=== PATIENT | male | born 1980 | race Caucasian/White ===

== ENCOUNTER 2020-03-03 12:25 | Emergency (ER) | payer BC ==
--- NOTE | 2020-03-03 13:07 | RAD REPORT ---
EXAM DESCRIPTION: Nomi Single View03/03/2020 12:54 pm CLINICAL HISTORY: Palpitations COMPARISON: 2014 FINDINGS: The lungs appear clear of acute infiltrate. The heart is normal size IMPRESSION: No acute abnormalities displayed
[2020-03-03 13:08] LABS: Absolute Lymphocytes (CBC) 3.1 K/uL (0.7-4.9); Basophils % 1.1 % (0-1.3); Hematocrit 46.6 % (39.6-49.0); Lymphocytes % 45.2 % (15.3-44.8); MPV 8.7 fL (7.6-11.3); RBC Red Blood Cell Count 5.41 M/uL (4.33-5.43)
[2020-03-03 13:09] LABS: Protime INR 0.97
--- NOTE | 2020-03-03 13:11 | RAD REPORT ---
EXAM DESCRIPTION: CT - Head Brain Wo Cont - 03/03/2020 12:56 pm CLINICAL HISTORY: Visual disturbance COMPARISON: None. TECHNIQUE: Computed axial tomography of the head was obtained. IV contrast was not requested. All CT scans are performed using dose optimization technique as appropriate and may include automated exposure control or mA/KV adjustment according to patient size. FINDINGS: An intracranial bleed is not seen . The ventricles are normal in caliber. No extra-axial fluid collection is noted. Fluid within the sinuses/ mastoids is not seen. IMPRESSION: No acute intracranial abnormality is seen. If patient's symptoms persist MRI of the bra in would be recommended.
[2020-03-03 13:25] LABS: ALT/SGPT 123 U/L (12-78); AST/SGOT 45 U/L (15-37); Alkaline Phosphatase 56 U/L (45-117); BUN Blood Urea Nitrogen 17 mg/dL (7-18); Bicarbonate 28 mmol/L (21-32); Bilirubin Direct 0.2 mg/dL (0-0.2); Bilirubin Total 0.7 mg/dL (0.2-1.0); Glucose Level 122 mg/dL (74-106); Magnesium 2.3 mg/dL (1.8-2.4); NT PRO-BNP 16 pg/mL (<125); Potassium 3.5 mmol/L (3.5-5.1); Protein, Total 7.6 g/dL (6.4-8.2); Sodium Level 140 mmol/L (136-145); Troponin (Emerg Dept Use Only) < 0.02 ng/mL (0.0-0.045)
[2020-03-03 13:33] LABS: Blood Morphology Comment NOT SEEN (NOT SEEN); Platelet Estimate ADEQ
--- NOTE | 2020-03-03 13:35 | ER ---
Nurse's Notes [facility] Name: Yoshi Connors Age: 39 yrs Sex: Male : 1980 Arrival Date: 03/03/2020 Time: 12:30 Bed 30 Private MD: Rufus Marie S Diagnosis: Palpitations Presentation: 03/03 12:38 Chief complaint: Patient states: Heart palpitations with dizziness and flutters in his ll1 left eye intermittently today. No pain. Coronavirus screen: Proceed with normal triage. Patient denies a cough. Patient denies shortness of breath or difficulty breathing. Patient denies measured and/or subjective temperature greater than 100.4F prior to today's visit. Patient denies travel on a cruise ship or to a country the [facility] currently lists as an affected area. Patient denies contact with known and/or suspected case of COVID-19. Ebola Screen: Patient denies travel to an Ebola-affected area in the 21 days before illness onset. Initial Sepsis Screen: Does the patient meet any 2 criteria? No. Patient's initial sepsis screen is negative. Risk Assessment: Do you want to hurt yourself or someone else? Patient reports no desire to harm self or others. Onset of symptoms was March 03, 2020. 12:38 Method Of Arrival: Ambulatory ll1 12:38 Acuity: TRUDY 3 ll1 12:45 Initial Sepsis Screen: Does the patient have a suspected source of infection? No. bp Patient's initial sepsis screen is negative. Triage Assessment: 12:45 General: Appears in no apparent distress. comfortable, Behavior is cooperative, bp appropriate for age, anxious. Pain: Denies pain. EENT: No deficits noted. Neuro: No deficits noted. Cardiovascular: No deficits noted. Respiratory: No deficits noted. GI: No signs and/or symptoms were reported involving the gastrointestinal system. : No signs and/or symptoms were reported regarding the genitourinary system. Derm: No deficits noted. Musculoskeletal: No deficits noted. Historical: - Allergies: 12:41 No Known Allergies; ll1 - PMHx: 12:41 None; ll1 - PSHx: 12:41 None; ll1 - Immunization history:: Adult Immunizations up to date. - Social history:: Patient uses alcohol, only on a social basis. Patient/guardian denies using street drugs, tobacco products, Smoking status: Patient denies any tobacco usage or history of. Screenin:44 Abuse screen: Denies threats or abuse. Denies injuries from another. Nutritional bp screening: No deficits noted. Tuberculosis screening: No symptoms or risk factors identified. Fall Risk None identified. Assessment: 12:44 General: SEE TRIAGE NOTE. PT ASYMPTOMATIC AT THIS TIME. bp 13:53 Reassessment: PT D/C HOME AMBULATORY, DX WITH PALPITATIONS. bp Vital Signs: 12:38 BP 138 / 84; Pulse 80; Resp 17; Temp 98.2; Pulse Ox 99% ; Pain 0/10; ll1 13:52 BP 133 / 81; Pulse 80; Resp 16; Temp 98.3; Pulse Ox 99% ; bp ED Course: 12:30 Patient arrived in ED. mr 12:30 Rufus Marie MD is Private Physician. mr 12:31 Cintia Logan FNP-C is [facility]. kb 12:31 Cielo Hinton MD is Attending Physician. kb 12:40 Triage completed. ll1 12:41 Arm band placed on Patient placed in an exam room, on a stretcher. ll1 12:44 Mika Jon, RN is Primary Nurse. bp 12:44 Patient has correct armband on for positive identification. Bed in low position. Call bp light in reach. Side rails up X2. 12:46 XRAY Chest (1 view) Sent. bp 12:50 Inserted saline lock: 20 gauge in right antecubital area, using aseptic technique. bp 12:54 XRAY Chest (1 view) In Process Unspecified. EDMS 12:56 CT Head Brain wo Cont In Process Unspecified. EDMS 13:53 No provider procedures requiring assistance completed. IV discontinued, intact, bp bleeding controlled, No redness/swelling at site. Pressure dressing applied. Administered Medications: No medications were administered Outcome: 13:34 Discharge ordered by . kb 13:53 Discharged to home ambulatory. bp 13:53 Condition: stable 13:53 Discharge instructions given to patient, Instructed on discharge instructions, follow up and referral plans. Demonstrated understanding of instructions, follow-up care. 13:54 Patient left the ED. bp Signatures: Dispatcher [employer] EDMS Cintia Logan FNP-C FNP-Lucia Barajas Mika Avila, RN RN bp Humera Shannon, RN RN ll1
--- NOTE | 2020-03-03 13:36 | EDPHYS ---
Physician Documentation [facility] Name: Yoshi Connors Age: 39 yrs Sex: Male : 1980 Arrival Date: 03/03/2020 Time: 12:30 Bed 30 Private MD: Rufus Marie S ED Physician Cielo Hinton HPI: 03/03 13:32 This 39 yrs old Male presents to ER via Ambulatory with complaints of Eye kb Problem. 13:32 The patient presents with a history of "flutters". Context: The symptoms occur at rest. kb Onset: The symptoms/episode began/occurred this morning. Duration: The patient or guardian reports multiple episodes, that are intermittent, with no pattern. Modifying factors: The symptoms are aggravated by nothing. The symptoms are alleviated by nothing. Associated signs and symptoms: Pertinent positives: floaters seen from left eye. Severity of symptoms: At their worst the symptoms were mild moderate in the emergency department the symptoms have resolved and did so just prior to arrival. The patient has not experienced similar symptoms in the past. The patient has not recently seen a physician. Pt reports palpitations with associated floaters out of left eye that has been intermittent since this morning. States symptoms have resolved now. . Historical: - Allergies: 12:41 No Known Allergies; ll1 - PMHx: 12:41 None; ll1 - PSHx: 12:41 None; ll1 - Immunization history:: Adult Immunizations up to date. - Social history:: Patient uses alcohol, only on a social basis. Patient/guardian denies using street drugs, tobacco products, Smoking status: Patient denies any tobacco usage or history of. ROS: 13:30 Constitutional: Negative for fever, chills, and weight loss, ENT: Negative for injury, kb pain, and discharge, Neck: Negative for injury, pain, and swelling, Respiratory: Negative for shortness of breath, cough, wheezing, and pleuritic chest pain, Abdomen/GI: Negative for abdominal pain, nausea, vomiting, diarrhea, and constipation, Back: Negative for injury and pain, MS/Extremity: Negative for injury and deformity, Skin: Negative for injury, rash, and discoloration, Neuro: Negative for headache, weakness, numbness, tingling, and seizure. 13:30 Eyes: Positive for sees floaters out of left eye intermittently . 13:30 Cardiovascular: Positive for palpitations, Negative for chest pain, edema, orthopnea, paroxysmal nocturnal dyspnea. Exam: 13:31 Constitutional: This is a well developed, well nourished patient who is awake, alert, kb and in no acute distress. Head/Face: Normocephalic, atraumatic. Eyes: Pupils equal round and reactive to light, extra-ocular motions intact. Lids and lashes normal. Conjunctiva and sclera are non-icteric and not injected. Cornea within normal limits. Periorbital areas with no swelling, redness, or edema. ENT: Nares patent. No nasal discharge, no septal abnormalities noted. Tympanic membranes are normal and external auditory canals are clear. Oropharynx with no redness, swelling, or masses, exudates, or evidence of obstruction, uvula midline. Mucous membranes moist. Neck: Trachea midline, no thyromegaly or masses palpated, and no cervical lymphadenopathy. Supple, full range of motion without nuchal rigidity, or vertebral point tenderness. No Meningismus. Chest/axilla: Normal chest wall appearance and motion. Nontender with no deformity. No lesions are appreciated. Cardiovascular: Regular rate and rhythm with a normal S1 and S2. No gallops, murmurs, or rubs. Normal PMI, no JVD. No pulse deficits. Respiratory: Lungs have equal breath sounds bilaterally, clear to auscultation and percussion. No rales, rhonchi or wheezes noted. No increased work of breathing, no retractions or nasal flaring. Abdomen/GI: Soft, non-tender, with normal bowel sounds. No distension or tympany. No guarding or rebound. No evidence of tenderness throughout. Skin: Warm, dry with normal turgor. Normal color with no rashes, no lesions, and no evidence of cellulitis. MS/ Extremity: Pulses equal, no cyanosis. Neurovascular intact. Full, normal range of motion. Neuro: Awake and alert, GCS 15, oriented to person, place, time, and situation. Cranial nerves II-XII grossly intact. Motor strength 5/5 in all extremities. Sensory grossly intact. Cerebellar exam normal. Normal gait. 13:37 ECG was reviewed by the Attending Physician. kb Vital Signs: 12:38 BP 138 / 84; Pulse 80; Resp 17; Temp 98.2; Pulse Ox 99% ; Pain 0/10; ll1 13:52 BP 133 / 81; Pulse 80; Resp 16; Temp 98.3; Pulse Ox 99% ; bp MDM: 12:35 Patient medically screened. kb 13:29 Data reviewed: vital signs, nurses notes. Data interpreted: Pulse oximetry: on room air kb is 99 %. Interpretation: normal. Counseling: I had a detailed discussion with the patient and/or guardian regarding: the historical points, exam findings, and any diagnostic results supporting the discharge/admit diagnosis, lab results, radiology results, the need for outpatient follow up, a family practitioner, to return to the emergency department if symptoms worsen or persist or if there are any questions or concerns that arise at home. 03/03 12:40 Order name: Basic Metabolic Panel; Complete Time: 13:27 kb 03/03 12:40 Order name: CBC with Diff; Complete Time: 13:35 kb 03/03 12:40 Order name: LFT's; Complete Time: 13:27 kb 03/03 12:40 Order name: Magnesium; Complete Time: 13:27 kb 03/03 12:40 Order name: NT PRO-BNP; Complete Time: 13:27 kb 03/03 12:40 Order name: PT-INR; Complete Time: 13:16 kb 03/03 12:40 Order name: Troponin (emerg Dept Use Only); Complete Time: 13:27 kb 03/03 12:40 Order name: XRAY Chest (1 view); Complete Time: 13:16 kb 03/03 12:40 Order name: EKG; Complete Time: 12:41 kb 03/03 12:40 Order name: Cardiac monitoring; Complete Time: 12:46 kb 03/03 12:40 Order name: EKG - Nurse/Tech; Complete Time: 13:09 kb 03/03 12:40 Order name: IV Saline Lock; Complete Time: 12:56 kb 03/03 12:40 Order name: CT Head Brain wo Cont; Complete Time: 13:16 kb 03/03 13:34 Order name: Manual Differential; Complete Time: 13:35 EDMS 03/03 12:40 Order name: Labs collected and sent; Complete Time: 12:56 kb 03/03 12:40 Order name: O2 Per Protocol; Complete Time: 12:56 kb 03/03 12:40 Order name: O2 Sat Monitoring; Complete Time: 12:56 kb EC:37 Rate is 80 beats/min. Rhythm is regular. QRS Winder is Normal. [place] interval is normal at kb 166 msec. QRS interval is normal at 100 msec. QT interval is normal at 360 msec. Administered Medications: No medications were administered Disposition: 17:24 Co-signature as Attending Physician, Cielo Hinton MD. ma2 Disposition: 03/03/20 13:34 Discharged to Home. Impression: Palpitations. - Condition is Stable. - Discharge Instructions: Palpitations, [id number]. - Medication Reconciliation Form, Thank You Letter, Antibiotic Education, Prescription Opioid Use form. - Follow up: Emergency Department; When: As needed; Reason: Worsening of condition. Follow up: Private Physician; When: 2 - 3 days; Reason: Recheck today's complaints, Continuance of care, Re-evaluation by your physician. Signatures: Dispatcher [employer] EDCintia Cerrato, MARAL SARAVIA-Mika Portillo, RN RN Cielo Hinton MD MD ma2 Humera Shannon RN RN ll1 Corrections: (The following items were deleted from the chart) 13:54 13:34 03/03/2020 13:34 Discharged to Home. Impression: Palpitations. Condition is bp Stable. Forms are Medication Reconciliation Form, Thank You Letter, Antibiotic Education, Prescription Opioid Use. Follow up: Emergency Department; When: As needed; Reason: Worsening of condition. Follow up: Private Physician; When: 2 - 3 days; Reason: Recheck today's complaints, Continuance of care, Re-evaluation by your physician. kb
[2020-03-03 14:03] VITALS: O2SAT 99
[2020-03-03 14:04] VITALS: BP 133/81; TEMP 98.3
--- NOTE | 2020-03-04 16:18 | EKG ---
Test Date: 2020-03-03 Test Time: 13:24:26 [employer] Check[employer] Technician: [employer] MEASUREMENT RESULTS: Intervals: Rate: 80 GA: 166 QRSD: 100 QT: 360 QTc: 415 [place]: P: 60 GA: 166 QRS: 27 T: 63 INTERPRETIVE STATEMENTS: Normal sinus rhythm Normal ECG Compared to ECG 09/24/2008 13:09:26 Sinus tachycardia no longer present Electronically Signed On 03-04-20 16:16:24 CDT by Rasta Lange
== END 2020-03-03 13:54 | disposition home or self-care (01) ==
LOC: ER 12:25
DX: R00.2 Palpitations (principal)
CPT/HCPCS: 36415; 70450; 71045; 80048; 80076; 83735; 83880; 84484; 85025; 85610; 93005; 99283

== ENCOUNTER 2021-02-12 17:16 | Observation (INO) | payer BC ==
[2021-02-12 21:08] LABS: Absolute Lymphocytes (CBC) 3.6 K/uL (0.7-4.9); Basophils % 0.6 % (0-1.3); Lymphocytes % 41.1 % (15.3-44.8); RBC Red Blood Cell Count 5.26 M/uL (4.33-5.43)
[2021-02-12 21:09] LABS: Protime INR 0.9
[2021-02-12 21:17] LABS: ALT/SGPT 109 U/L (12-78); AST/SGOT 41 U/L (15-37); Albumin 4.2 g/dL (3.4-5.0); Alkaline Phosphatase 56 U/L (45-117); BUN Blood Urea Nitrogen 15 mg/dL (7-18); Bicarbonate 29 mmol/L (21-32); Bilirubin Direct 0.1 mg/dL (0-0.2); Bilirubin Total 0.5 mg/dL (0.2-1.0); Glucose Level 93 mg/dL (74-106); Lipase 156 U/L (73-393); Magnesium 2.4 mg/dL (1.8-2.4); NT PRO-BNP 8 pg/mL (<125); Potassium 4.1 mmol/L (3.5-5.1); Sodium Level 142 mmol/L (136-145); Troponin (Emerg Dept Use Only) < 0.02 ng/mL (0.0-0.045)
[2021-02-12] MEDS ORDERED: ASPIRIN 81 MG CHEWABLE TABLET ONE (21:42)
[2021-02-12] MEDS ORDERED: ENOXAPARIN 80 MG/0.8 ML SQ ONE (21:42)
[2021-02-12] MEDS ORDERED: ENOXAPARIN 40 MG/0.4 ML SQ ONE (21:43)
[2021-02-12] MEDS ORDERED: FAMOTIDINE 20 MG/2 ML VIAL IV ONE (21:43)
--- NOTE | 2021-02-12 21:55 | EDPHYS ---
Physician Documentation [facility] Name: Yoshi Connors Age: 40 yrs Sex: Male : 1980 Arrival Date: 02/12/2021 Time: 17:17 Bed 5 Private MD: ED Physician Jose Vargas HPI: 02/12 20:58 This 40 yrs old Male presents to ER via Ambulatory with complaints of Chest gm Pain. 20:58 The patient or guardian reports chest pain that is located primarily in the anterior gm chest wall, bilaterally. Onset: today. The pain does not radiate. Associated signs and symptoms: Pertinent positives: diaphoresis, lightheadedness, nausea, shortness of breath. The chest pain is described as burning, a heaviness, causing indigestion. Duration: The patient or guardian reports multiple episodes, with no pattern. Modifying factors: The symptoms are alleviated by nothing. the symptoms are aggravated by nothing. Severity of pain: At its worst the pain was moderate in the emergency department the pain has resolved. The patient has experienced similar episodes in the past, a few times. Historical: - Allergies: 17:26 No Known Allergies; ca1 - Home Meds: 17:26 None [Active]; ca1 - PMHx: 17:26 None; ca1 - PSHx: 17:26 None; ca1 - Immunization history:: Flu vaccine is not up to date. - Social history:: Smoking status: Patient denies any tobacco usage or history of. - Family history:: not pertinent. ROS: 20:58 Constitutional: Negative for fever, chills, and weight loss, Eyes: Negative for injury, gm pain, redness, and discharge, ENT: Negative for injury, pain, and discharge, Neck: Negative for injury, pain, and swelling, Cardiovascular: Negative for chest pain, palpitations, and edema, Respiratory: Negative for shortness of breath, cough, wheezing, and pleuritic chest pain, Abdomen/GI: Negative for abdominal pain, nausea, vomiting, diarrhea, and constipation, Back: Negative for injury and pain, : Negative for injury, bleeding, discharge, and swelling, MS/Extremity: Negative for injury and deformity, Skin: Negative for injury, rash, and discoloration, Neuro: Negative for headache, weakness, numbness, tingling, and seizure, Psych: Negative for depression, anxiety, suicide ideation, homicidal ideation, and hallucinations, Allergy/Immunology: Negative for hives, rash, and allergies, Endocrine: Negative for neck swelling, polydipsia, polyuria, polyphagia, and marked weight changes. Exam: 20:58 Constitutional: This is a well developed, well nourished patient who is awake, alert, gm and in no acute distress. Head/Face: Normocephalic, atraumatic. Eyes: Pupils equal round and reactive to light, extra-ocular motions intact. Lids and lashes normal. Conjunctiva and sclera are non-icteric and not injected. Cornea within normal limits. Periorbital areas with no swelling, redness, or edema. ENT: Nares patent. No nasal discharge, no septal abnormalities noted. Tympanic membranes are normal and external auditory canals are clear. Oropharynx with no redness, swelling, or masses, exudates, or evidence of obstruction, uvula midline. Mucous membranes moist. Neck: Trachea midline, no thyromegaly or masses palpated, and no cervical lymphadenopathy. Supple, full range of motion without nuchal rigidity, or vertebral point tenderness. No Meningismus. Chest/axilla: Normal chest wall appearance and motion. Nontender with no deformity. No lesions are appreciated. Cardiovascular: Regular rate and rhythm with a normal S1 and S2. No gallops, murmurs, or rubs. Normal PMI, no JVD. No pulse deficits. Respiratory: Lungs have equal breath sounds bilaterally, clear to auscultation and percussion. No rales, rhonchi or wheezes noted. No increased work of breathing, no retractions or nasal flaring. Abdomen/GI: Soft, non-tender, with normal bowel sounds. No distension or tympany. No guarding or rebound. No evidence of tenderness throughout. Back: No spinal tenderness. No costovertebral tenderness. Full range of motion. Male : Normal genitalia with no discharge or lesions. Skin: Warm, dry with normal turgor. Normal color with no rashes, no lesions, and no evidence of cellulitis. MS/ Extremity: Pulses equal, no cyanosis. Neurovascular intact. Full, normal range of motion. Neuro: Awake and alert, GCS 15, oriented to person, place, time, and situation. Cranial nerves II-XII grossly intact. Motor strength 5/5 in all extremities. Sensory grossly intact. Cerebellar exam normal. Normal gait. Psych: Awake, alert, with orientation to person, place and time. Behavior, mood, and affect are within normal limits. 20:58 Musculoskeletal/extremity: DVT Exam: No signs of deep vein thrombosis. no pain, no swelling, no tenderness, negative Homans' sign noted on exam, no appreciated bluish discoloration, no erythema, no increased warmth. 21:03 ECG was reviewed by the Attending Physician. gm Vital Signs: 17:23 BP 160 / 95; Pulse 95; Resp 18 S; Temp 98.4(TE); Pulse Ox 99% on R/A; Weight 115.67 kg ca1 (R); Height 6 ft. 8 in. (203.20 cm) (R); Pain 2/10; 20:36 BP 142 / 94; Pulse 68; Resp 16; Pulse Ox 98% on R/A; rv 02/13 19:14 BP 113 / 82; Pulse 78; Resp 18; Temp 98; Pulse Ox 99% ; ea 02/12 17:23 Body Mass Index 28.01 (115.67 kg, 203.20 cm) ca1 MDM: 02/12 20:33 Patient medically screened. gm 21:04 Differential diagnosis: abnormal EKG, acute myocardial infarction, acute pericarditis, gm anxiety, coronary artery disease chest wall pain, cholecystitis, Cholelithiasis costochondritis, pancreatitis, pulmonary embolus, unstable angina. HEART Score: History: Slightly Suspicious (0), ECG: Non specific repolarization disturbance / LBTB / PM (1), Age: < or = 45 years (0), Risk Factors: 1 or 2 risk factors (1), [+ Family HX] Troponin: < or = 1 x Normal Limit (0). The patient was given aspirin in the Emergency Department. The patient's deep vein thrombosis risk score was calculated as follows: Total Score: 0. This patient was found to be at low risk for a deep vein thrombosis by using the Well's assessment criteria. The patient's pulmonary embolism risk score was calculated as follows: Total Score: 0-2 points. This patient was found to be at low risk for a pulmonary embolism by using the Well's assessment criteria. JAZMIN Risk Score: TOTAL SCORE = 0. Data reviewed: vital signs, nurses notes, lab test result(s), EKG, radiologic studies, plain films. Data interpreted: system admin: rate is 68 beats/min, rhythm is regular, Pulse oximetry: on room air is 98 %. Test interpretation: by ED physician or midlevel provider: ECG, plain radiologic studies. Counseling: I had a detailed discussion with the patient and/or guardian regarding: the historical points, exam findings, and any diagnostic results supporting the discharge/admit diagnosis, lab results, radiology results, the need for further work-up and treatment in the hospital. 02/12 20:33 Order name: Basic Metabolic Panel [facility] 02/12 20:33 Order name: CBC with Diff [facility] 02/12 20:33 Order name: LFT's; Complete Time: 21:48 [facility] 02/12 20:33 Order name: Magnesium; Complete Time: 21:48 [facility] 02/12 20:33 Order name: NT PRO-BNP; Complete Time: 21:48 [facility] 02/12 20:33 Order name: PT-INR; Complete Time: 21:48 [facility] 02/12 20:33 Order name: Troponin (emerg Dept Use Only); Complete Time: 21:48 [facility] 02/12 20:34 Order name: Basic Metabolic Panel; Complete Time: 21:48 [facility] 02/12 20:34 Order name: CBC with Automated Diff; Complete Time: 21:48 [facility] 02/12 21:02 Order name: Lipase; Complete Time: 21:48 [facility] 02/12 22:58 Order name: SARS-COV-2 RT PCR [facility] 02/13 03:21 Order name: Troponin I [facility] 02/12 17:26 Order name: EKG; Complete Time: 17:27 [facility] 02/12 17:26 Order name: EKG - Nurse/Tech; Complete Time: 17:26 [facility] 02/12 20:33 Order name: XRAY Chest (1 view) [facility] 02/12 20:33 Order name: Cardiac monitoring; Complete Time: 20:37 [facility] 02/12 20:33 Order name: IV Saline Lock; Complete Time: 20:37 [facility] 02/12 20:56 Order name: EKG; Complete Time: 20:57 [facility] 02/12 21:04 Order name: EKG; Complete Time: 21:04 rv 02/12 21:07 Order name: CT Aorta for Dissection [facility] 02/13 03:21 Order name: Lipid Profile [facility] 03/25 14:22 Order name: NM [facility] 02/12 20:33 Order name: Labs collected and sent; Complete Time: 20:37 [facility] 02/12 20:33 Order name: O2 Per Protocol; Complete Time: 20:37 [facility] 02/12 20:33 Order name: O2 Sat Monitoring; Complete Time: 20:37 [facility] 02/12 20:56 Order name: EKG - Nurse/Tech; Complete Time: 22:05 gm EC:03 Rate is 64 beats/min. Rhythm is regular. QRS [place] is Normal. NC interval is normal. QRS gm interval is normal. QT interval is normal. No Q waves. T waves are Normal. No ST changes noted. Clinical impression: NSR w/ Non-specific ST/T Changes and No evidence of ischemia. Interpreted by me. Reviewed by me. Administered Medications: 21:01 CANCELLED (Duplicate Order): Lopressor 5 mg IVP once; Hold for SBP <100 or HR <60. gm 21:02 CANCELLED (Duplicate Order): Lopressor (metoprolol TARTRATE) 50 mg PO once [facility] 21:40 Drug: Lovenox 1 mg/kg Route: Sub-Q; Site: abdomen; rv 02/13 02:14 Follow up: Response: No adverse reaction rv 02/12 21:41 Drug: Aspirin Chewable Tablet 324 mg Route: PO; rv 02/13 02:15 Follow up: Response: No adverse reaction rv 02/12 21:41 Drug: Pepcid 20 mg Route: IVP; Site: left antecubital; rv 02/13 02:15 Follow up: Response: No adverse reaction rv 02/12 22:37 Drug: Lopressor 25 mg Route: PO; jb4 02/13 02:14 Follow up: Response: No adverse reaction rv Disposition: 02/12/21 21:55 Hospitalization ordered by Cielo Gomez for Observation. Preliminary diagnosis is Chest pain, unspecified. - Bed requested for Telemetry/MedSurg (observation). - Status is Observation. ea - Condition is Stable. - Problem is new. - Symptoms have improved. Signatures: Dispatcher [employer] EDNV Shelby Cm RN RN dw Anderson, Corey, MD MD cha Bryson, James, RN RN jb4 Jyoti Stroud RN RN ea Vicente, Ronaldo, RN RN rv Acob, Cheryl RN RN ca1 Corazon Orozco RN RN rd1 Corrections: (The following items were deleted from the chart) 02/12 21:01 20:56 Lopressor 5 mg IVP once; Hold for SBP <100 or HR <60. ordered. [facility] : 20:56 Lopressor (metoprolol TARTRATE) 50 mg PO once ordered. [facility] 20:57 LIPASE+C.LAB.BRZ ordered. EDMS EDMS 22:06 21:42 CORONAVIRUS+MR.LAB.BRZ ordered. EDNV EDMS 02/13 02:10 02/12 21:55 Hospitalization Ordered by Cielo Gomez MD for Observation. Preliminary rd1 diagnosis is Chest pain, unspecified. Bed requested for Telemetry/MedSurg (observation). Status is Observation. Condition is Stable. Problem is new. Symptoms have improved. [facility] 02/13 18:49 02:10 02/12/2021 21:55 Hospitalization Ordered by Cielo Gomez MD for Observation. dw Preliminary diagnosis is Chest pain, unspecified. Bed requested for [facility] ER HOLD. Status is Observation. Condition is Stable. Problem is new. Symptoms have improved. rd1 20:27 18:49 02/12/2021 21:55 Hospitalization Ordered by Cielo Gomez MD for Observation. ea Preliminary diagnosis is Chest pain, unspecified. Bed requested for Telemetry/MedSurg (observation). Status is Observation. Condition is Stable. Problem is new. Symptoms have improved. dw
--- NOTE | 2021-02-12 21:55 | ER ---
Nurse's Notes [facility] Name: Yoshi Connors Age: 40 yrs Sex: Male : 1980 Arrival Date: 02/12/2021 Time: 17:17 Bed 5 Private MD: Diagnosis: Chest pain, unspecified Presentation: 02/12 17:23 Chief complaint: Patient states: Chest pain started 2 hrs [employer], got clammy, SOB and ca1 nauseated after. Also reports diarrhea after the pain. Coronavirus screen: Client denies travel out of the [place] in the last 14 days. diarrhea, nausea, Client presents with at least one sign or symptom that may indicate coronavirus-19. Standard/surgical mask placed on the client. Provider contacted for isolation considerations. Ebola Screen: Patient negative for fever greater than or equal to 101.5 degrees Fahrenheit, and additional compatible Ebola Virus Disease symptoms Patient denies exposure to infectious person. Patient denies travel to an Ebola-affected area in the 21 days before illness onset. No symptoms or risks identified at this time. Initial Sepsis Screen: Does the patient meet any 2 criteria? No. Patient's initial sepsis screen is negative. Does the patient have a suspected source of infection? No. Patient's initial sepsis screen is negative. Risk Assessment: Do you want to hurt yourself or someone else? Patient reports no desire to harm self or others. Onset of symptoms was February 12, 2021. 17:23 Method Of Arrival: Ambulatory ca1 17:23 Acuity: TRUDY 3 ca1 Triage Assessment: 17:26 Cardiovascular: Rhythm is sinus rhythm. ca1 Historical: - Allergies: 17:26 No Known Allergies; ca1 - Home Meds: 17:26 None [Active]; ca1 - PMHx: 17:26 None; ca1 - PSHx: 17:26 None; ca1 - Immunization history:: Flu vaccine is not up to date. - Social history:: Smoking status: Patient denies any tobacco usage or history of. - Family history:: not pertinent. Screenin:35 Abuse screen: Denies threats or abuse. Abuse screen: Denies injuries from another. rv Nutritional screening: No deficits noted. Tuberculosis screening: No symptoms or risk factors identified. Fall Risk None identified. Assessment: 20:35 General: Appears comfortable, Behavior is calm, cooperative. Pain: Complains of pain in rv chest Pain radiates to chest Pain currently is 0 out of 10 on a pain scale. Pain began suddenly. Neuro: Level of Consciousness is awake, alert, obeys commands, Oriented to person, place, time, situation. Cardiovascular: Patient's skin is warm and dry. Rhythm is regular. Respiratory: Airway is patent Respiratory effort is even, unlabored. 02/13 19:10 Reassessment: Patient and/or family updated on plan of care and expected duration. Pain ea level reassessed. Patient is alert, oriented x 3, equal unlabored respirations, skin warm/dry/pink. 20:15 Reassessment: Patient and/or family updated on plan of care and expected duration. Pain ea level reassessed. Patient is alert, oriented x 3, equal unlabored respirations, skin warm/dry/pink. Report given to receiving nurse. Pt admitted to fourth floor. Left ED via wheelchair per tech. Pt tolerating well. Vital Signs: 02/12 17:23 BP 160 / 95; Pulse 95; Resp 18 S; Temp 98.4(TE); Pulse Ox 99% on R/A; Weight 115.67 kg ca1 (R); Height 6 ft. 8 in. (203.20 cm) (R); Pain 2/10; 20:36 BP 142 / 94; Pulse 68; Resp 16; Pulse Ox 98% on R/A; rv 02/13 19:14 BP 113 / 82; Pulse 78; Resp 18; Temp 98; Pulse Ox 99% ; ea 02/12 17:23 Body Mass Index 28.01 (115.67 kg, 203.20 cm) ca1 ED Course: 02/12 17:17 Patient arrived in ED. as 17:25 Triage completed. ca1 17:26 Arm band placed on. EKG completed in triage. Results shown to MD. ca1 20:28 Last Acevedo, [place] is Primary Nurse. rv 20:33 Jose Vargas MD is Attending Physician. gm 20:35 Patient has correct armband on for positive identification. critical care technician on. Pulse rv ox on. NIBP on. 20:35 Initial lab(s) drawn, by me, sent to lab. Inserted saline lock: 20 gauge in left rv antecubital area, using aseptic technique. Blood collected. 20:35 Patient maintains SpO2 saturation greater than 95% on room air. rv 21:14 XRAY Chest (1 view) In Process Unspecified. EDMS 21:49 Cielo Gomez MD is Hospitalizing Provider. [facility] 22:38 CT Aorta for Dissection In Process Unspecified. EDMS 02/13 02:13 No provider procedures requiring assistance completed. IV is patent, with fluids rv infusing freely, Patient admitted, IV remains in place. Administered Medications: 02/12 21:01 CANCELLED (Duplicate Order): Lopressor 5 mg IVP once; Hold for SBP <100 or HR <60. gm 21:02 CANCELLED (Duplicate Order): Lopressor (metoprolol TARTRATE) 50 mg PO once gm 21:40 Drug: Lovenox 1 mg/kg Route: Sub-Q; Site: abdomen; rv 02/13 02:14 Follow up: Response: No adverse reaction rv 02/12 21:41 Drug: Aspirin Chewable Tablet 324 mg Route: PO; rv 02/13 02:15 Follow up: Response: No adverse reaction rv 02/12 21:41 Drug: Pepcid 20 mg Route: IVP; Site: left antecubital; rv 02/13 02:15 Follow up: Response: No adverse reaction rv 02/12 22:37 Drug: Lopressor 25 mg Route: PO; jb4 02/13 02:14 Follow up: Response: No adverse reaction rv Outcome: 02/12 21:55 Decision to Hospitalize by Provider. [facility] 02/13 02:13 Admitted to ER Hold. Please see [facility] for further documentation. rv Condition: good Instructed on the need for admit. 20:27 Patient left the ED. ea Signatures: Dispatcher [employer] EDND Jose Vargas MD MD cha Martinez, Amelia as Bryson, James RN RN jb4 Jyoti Stroud RN RN ea Vicente, Ronaldo, RN RN rv Deann Cotton RN RN ca1
[2021-02-12] MEDS ORDERED: METOPROLOL TAR 25 MG TAB ONE (22:15)
[2021-02-13] MEDS ORDERED: ALPRAZOLAM 0.25 MG TABLET PO PRN (02:29)
[2021-02-13] MEDS ORDERED: MORPHINE 4 MG/ML SYR IV PRN (02:29)
[2021-02-13] MEDS ORDERED: ACETAMINOPHEN 500 MG TAB PO PRN (02:29)
[2021-02-13 02:37] VITALS: BMI 28.0
[2021-02-13 03:21] LABS: HDL Cholesterol 41 mg/dL (40-60); LDL Cholesterol, Calculated 93 (<130); Troponin I < 0.02 ng/mL (0.0-0.045)
--- NOTE | 2021-02-13 07:19 | EKG ---
Test Date: 2021-02-12 Test Time: 20:59:18 Manager Heavy Duty: RV MEASUREMENT RESULTS: Intervals: Rate: 64 MT: 168 QRSD: 96 QT: 378 QTc: 389 [place]: P: 46 MT: 168 QRS: 16 T: 54 INTERPRETIVE STATEMENTS: Normal sinus rhythm with sinus arrhythmia Normal ECG Compared to ECG 03/03/2020 13:24:26 No significant changes Electronically Signed On 02-13-21 07:18:00 CDT by Rasta Lange
--- NOTE | 2021-02-13 08:21 | RAD REPORT ---
EXAM DESCRIPTION: Nomi Single View02/12/2021 9:17 pm CLINICAL HISTORY: Chest pain COMPARISON: 2019 FINDINGS: The lungs appear clear of acute infiltrate. The heart is normal size IMPRESSION: No acute abnormalities displayed
[2021-02-13] MEDS: ASPIRIN EC 81 MG TAB PO SCH (09:00)
[2021-02-13] MEDS: METOPROLOL TAR 50 MG TAB PO SCH ×2 (09:00→21:55)
[2021-02-13] MEDS: ENOXAPARIN 40 MG/0.4 ML SQ SCH (09:00)
[2021-02-13] MEDS ORDERED: REGADENOSON 0.4 MG/5 ML SYR IV ONE (09:15)
--- NOTE | 2021-02-13 10:40 | CON ---
Date of Consultation: 02/13/[address] Gomez's service on 02/13/2021. I saw the patient on 02/13/2021. Reason For Consultation: Chest pain. History Of Present Illness: Mr. Connors is a 40-year-old male, who is really very healthy. He does no t take any medication. He does have a strong family history of heart disease. He had a cardiac work up in my office 2 years ago that was unremarkable. He came in with substernal chest pressure sensati on after he climbed the ladder and he came back down and felt like a small explosion in his chest danna t lasted about 8 seconds, radiated throughout the chest, but not to the arm or jaw. He did have some nausea and diaphoresis, not short of breath. Denies any PND, orthopnea, palpitations, pedal edema, or syncope. Denies any orthopnea. Denies any fever or chills. Because of his family history, he wa s concerned and he came to the emergency room for a checkup. He had a chest x-ray that was negative, EKG that was negative, troponin that was negative. Dr. Gomez already ordered an echocardiogram and s tress test on him. Past Medical History: Negative. Allergies: NONE. Review of Systems: Negative. Social History: Negative. Family History: Positive for heart disease. Medications: None. Physical Examination: Vital Signs: Stable. Afebrile. HEENT: Negative. Neck: Supple with no bruit. Chest: Clear to auscultation and percussion. Cardiac: Regular rhythm and rate. No murmurs, gallops, or rubs. Abdomen: Benign. Extremities: Revealed no clubbing, cyanosis, or edema. Diagnostic Data: Normal. Impression And Plan: The patient with atypical chest pain, positive family history of heart disease. This could be related to a PVC or a PAC or short run of arrhythmia. This is more likely to be the case than actual coronary artery disease. Nevertheless, we will see what the monitor shows. We will get an echocardiogram and a stress test today and I will discuss the case with him. After the testi ng is negative, he can go home. DARCI/KE Voice ID: [id number] Report ID: [id number]
[2021-02-13] MEDS ORDERED: ASPIRIN EC 81 MG TAB PO ONE (11:38)
[2021-02-13] MEDS ORDERED: ENOXAPARIN 40 MG/0.4 ML SQ ONE (11:39)
[2021-02-13] MEDS ORDERED: METOPROLOL TAR 25 MG TAB ONE (11:39)
--- NOTE | 2021-02-13 14:15 | RAD REPORT ---
EXAM DESCRIPTION: NM - Rest Stress Cardiac Imaging - 02/13/2021 1:55 pm CLINICAL HISTORY: Chest pain COMPARISON: None. TECHNIQUE: The patient was administered 10.7 mCi of Tc 99m Sestamibi prior to resting SPECT imaging of the heart. The patient was then administered 30.1 mCi of Tc 99m Sestamibi following exercise or ph armacologic stress. Multiplanar SPECT images were reviewed. FINDINGS: The end diastolic volume is 148 ml, the end systolic volume is 62 ml, and the ejection fra ction is 58 %. In the inferior wall near the apex there is a small focus of mildly diminished activity on stress claribel ging not clearly present on the rest sequencing. Elsewhere no areas of scarring or possible stress is chemia identifiable. IMPRESSION: Small focus of stress ischemia seen inferior wall near the apex. No other possible ischemia or focal scarring changes seen. End-diastolic volume was 148 milliliters with a 58% ejection fraction.
--- NOTE | 2021-02-13 14:52 | RAD REPORT ---
EXAM DESCRIPTION: CT - Angio Aorta For Dissection - 02/13/2021 7:05 am CLINICAL HISTORY: CHEST PAIN. COMPARISON: None. TECHNIQUE: CTA of the chest, abdomen, and pelvis was performed following intravenous administration of iodinated contrast. Axial soft tissue and bone window, and coronal and sagittal soft tissue window reconstructions were created and sent to PACS. 3D postprocessing was performed on an independent workstation, with images sent to PACS for subsequen t review. This exam was performed according to our departmental dose-optimization program, which includes autom ated exposure control, adjustment of the mA and/or kV according to patient size and/or use of iterati ve reconstruction technique. FINDINGS: Vascular: No evidence of aortic aneurysm or dissection. The major visceral vessels are pat ent. No CT evidence of acute pulmonary thromboembolism. Lungs and pleura: No pulmonary consolidation. No pleural effusion. No pneumothorax. Mediastinum and neck: No mediastinal lymphadenopathy by CT size criteria. Unremarkable appearance of the thyroid gland. Cardiac: No cardiomegaly or pericardial effusion. Hepatobiliary: Diffuse hepatic steatosis. Hepatomegaly, measuring 19.8 cm in length No concerning hep atic lesion identified. The hepatic and portal veins are patent. The gallbladder is unremarkable. No biliary ductal dilatation. Pancreas: Unremarkable. Spleen: Unremarkable. Gastrointestinal: No evidence of bowel obstruction or perienteric inflammation. The appendix is surgi nakita absent. Small amount of fecal material throughout the colon. Adrenals: No abnormality identified in either adrenal gland. Renal: No concerning parenchymal abnormality in either kidney. No hydronephrosis or urolithiasis. Bladder/Reproductive: Unremarkable appearance of the urinary bladder by CT technique. Vascular/Lymphatics: No lymphadenopathy identified by CT size criteria. Abdominal aorta is normal in caliber. Musculoskeletal: No concerning osseous lesion identified. Fluid / peritoneum: No significant free fluid. No free intraperitoneal air identified. IMPRESSION: 1. No evidence of aortic aneurysm or dissection. No acute pulmonary thromboembolism id entified. 2. No pulmonary consolidation or pleural effusions. 3. Hepatomegaly with diffuse hepatic steatosis. Electronically signed by: Kelley Judd MD 02/12/2021 10:48 PM CDT Due to temporary technical issues with the PACS/Fluency reporting system, reports are being signed by the in house radiologist without review as a courtesy to ensure prompt reporting. The interpreting r adiologist is fully responsible for the content of the report.
--- NOTE | 2021-02-13 18:46 | P.HP ---
Certification for Inpatient Patient admitted to: Observation With expected LOS: <2 Midnights Patient will require the following post-hospital care: None Practitioner: I am a practitioner with admitting privileges, knowledge of patient current condition, hospital course, and medical plan of care. Services: Services provided to patient in accordance with Admission requirements found in Title 42 Section 412.3 of the Code of Federal Regulations Patient History Date of Service: 02/13/21 Reason for admission: Chest pain rule out acute coronary syndrome History of Present Illness: Patient is a 40-year-old gentleman came to the hospital with chest discomfort. Pain was mainly in the sternal region. Patient felt a little short of breath. Patient also the lightheaded. He thought it would go away but it was not so we decided come into the emergency room. In the emergency room decision was made to admit to the hospital for further evaluation. Patient will has a family history of cardiac disease. Father had cardiac issues as did his grandfather on his mother side. Patient had a stress test about 5-6 years ago and at that time everything was normal. Further workup pending at this time. Allergies No Known Allergies Allergy (Unverified 02/13/21 02:18) - Past Medical/Surgical History Has patient received pneumonia vaccine in the past: No Diabetic: No Past Medical History: Patient denies medical history Past Surgical History: Patient denies surgical history - Family History Father Family History: Reviewed- Non-Contributory - Social History Smoking Status: Never smoker Place of Residence: Home Review of Systems 10-point ROS is otherwise unremarkable Physical Examination - Vital Signs Temperature: 99 F Blood Pressure: 113/82 Pulse: 73 Respirations: 18 Pulse Ox (%): 94 - Physical Exam General: Alert, In no apparent distress, Oriented x3 HEENT: Atraumatic, PERRLA, Mucous membr. moist/pink, EOMI, Sclerae nonicteric Neck: Supple, 2+ carotid pulse no bruit, No LAD, Without JVD or thyroid abnor mality Respiratory: Clear to auscultation bilaterally, Normal air movement Cardiovascular: Regular rate/rhythm, Normal S1 S2, No murmurs Gastrointestinal: Normal bowel sounds, Soft and benign, Non-distended, No tenderness Musculoskeletal: No clubbing, No swelling, No tenderness Integumentary: No rashes Neurological: Normal gait, Normal speech, Normal strength at 5/5 x4 extr, Normal tone, Sensation intact, Cranial nerves 3-12 intact, Normal affect Lymphatics: No axilla or inguinal lymphadenopathy - Studies Laboratory Data (last 24 hrs) 02/12/21 20:57: Lipase Cancelled 02/12/21 20:30: PT 10.3, INR 0.90 02/12/21 20:30: WBC 8.90, Hgb 15.8, Hct 46.0, Plt Count 244 02/12/21 20:30: Sodium 142, Potassium 4.1, BUN 15, Creatinine 1.12, Glucose 93, Magnesium 2.4, Total Bilirubin 0.5, AST 41 H, ALT 109 H, Alkaline Phosphatase 56, Lipase 156 Assessment & Plan - Problems (Diagnosis) (1) Chest pain, rule out acute myocardial infarction Current Visit: Yes Status: Acute - Plan 1. Serial troponins and EKG 2. Appreciate Cardiology consultation 3. Echocardiogram and stress test if cardiology is agreeable 4. Anti-platelet therapy, anti coagulation, beta-adela, statin, and O2 as needed 5. IV morphine for pain 6. Nitro p.r.n. Discharge Plan: Home Plan to discharge in: 24 Hours - Advance Directives Does patient have a Living Will: No Does patient have a Durable POA for Healthcare: No - Code Status/Comfort Care Code Status Assessed: Yes Code Status: Full Code Critical Care: No Time Spent Managing PTS Care (In Minutes): 45
--- NOTE | 2021-02-14 06:05 | P.PN ---
Date of Service: 02/13/21 Stress test was positive so patient scheduled for cardiac catheterization in the morning.
--- NOTE | 2021-02-14 08:16 | ECHO ---
HEIGHT: 6 ft 8 in WEIGHT: 255 lb 0 oz DATE OF STUDY: 02/13/[address]: Cielo Gomez MD 2-DIMENSIONAL: YES M.MODE: YES DOPPLER: YES COLOR FLOW: YES TDS: NO PORTABLE: NO DEFINITY: NO BUBBLE STUDY: NO DIAGNOSIS: CHEST PAIN, RULE OUT ACS CARDIAC HISTORY: CATHERIZATION: NO SURGERY: NO PROSTHETIC VALVE: NO PACEMAKER: NO MEASUREMENTS (cm) DIASTOLIC (NORMALS) SYSTOLIC (NORMALS) IVSd 1.0 (0.6-1.2) LA Diam 2.7 (1.9-4.0) LVEF 55-60% LVIDd 3.7 (3.5-5.7) LVIDs 1.9 (2.0-3.5) %FS 49% LVPWd 1.1 (0.6-1.2) Ao Diam 3.0 (2.0-3.7) 2 DIMENSIONAL ASSESSMENT: RIGHT ATRIUM: NORMAL LEFT ATRIUM: NORMAL RIGHT VENTRICLE: NORMAL LEFT VENTRICLE: NORMAL TRICUSPID VALVE: NORMAL MITRAL VALVE: PULMONIC VALVE: NORMAL AORTIC VALVE: NORMAL PERICARDIAL EFFUSION: NONE AORTIC ROOT: NORMAL LEFT VENTRICULAR WALL MOTION: NORMAL DOPPLER/COLOR FLOW: NORMAL COMMENTS: NORMAL LEFT VENTRICULAR EJECTION FRACTION 55-60%. NORMAL WALL MOTION. IMPAIRED RELAXATION. MILD MITRAL REGURGITATION. TECHNOLOGIST: Bhavna BORJAS
--- NOTE | 2021-02-14 08:22 | TREADPHA ---
DX: CHEST PAIN Date of Study: 02/13/2021 Ht: 6' 8 " Wt: 255 lb 0 oz Consulting Physician: NADIA MEDICATIONS: NO HOME MEDICATIONS. HISTORY: NO MEDICAL HISTORY. PHYSICIAL EXAMINATION: RESTING B.P.: 143/84 RESTING H.R.: 78 RESTING EKG: NORMAL PROTOCOL: LEXISCAN EXERCISE TIME: 3:30 B.P. AT PEAK STRESS: 150/86 IMPRESSION: LEXISCAN STRESS TEST PERFORMED. CARDIOLITE INJECTED PER PROTOCOL. SEE NUCLEAR MEDICINE REPORT. NO SUPRAVENTRICULAR TACHYCARDIA. NO VENTRICULAR TACHYCARDIA. SINUS ARRHYTHMIAS NOTED THROUGHOUT STUDY. RESPIRATORY EVEN AND NONLABORED. PATIENT TOLERATED WELL. ST CHANGES OF ISCHEMIA WITH STRESS.
[2021-02-14] MEDS ORDERED: HEPA 1000U/500MLS 1,000 UNIT/500 ML BAG IV ONE ×2 (08:59→10:46)
[2021-02-14] MEDS: METOPROLOL TAR 50 MG TAB PO SCH (09:00)
[2021-02-14] MEDS: ENOXAPARIN 40 MG/0.4 ML SQ SCH (09:00)
[2021-02-14] MEDS: ASPIRIN EC 81 MG TAB PO SCH (09:00)
[2021-02-14] MEDS ORDERED: NA CHLORIDE 0.9% 500 ML ONE (09:59)
[2021-02-14] MEDS ORDERED: FENTANYL CITR 100 MCG/2 ML ONE (11:00)
[2021-02-14] MEDS ORDERED: ATROPINE SULF 1 MG/10 ML SYR IV ONE (11:00)
[2021-02-14] MEDS ORDERED: NA CHLORIDE 0.9% 0 ML ONE (11:00)
[2021-02-14] MEDS ORDERED: MIDAZOLAM HCL 2 MG/2 ML INJ ONE ×3 (11:00→11:11)
[2021-02-14] MEDS ORDERED: PRASUGREL (EFFIENT) 10 MG TAB ONE (11:10)
[2021-02-14] MEDS ORDERED: ASPIRIN 325 MG TAB ONE (11:10)
[2021-02-14 11:54] VITALS: O2SAT 97
--- NOTE | 2021-02-14 12:02 | OP ---
Date of Procedure: 02/13/2021 Surgeon: Rasta Lange MD Color Sprayer: Mr. Nixon Miller. The patient will be in the hospital for another 2 hours. He will be sent home after that and he will see me in the office in the next couple of weeks. Mr. Yoshi Connors is admitted to Dr. Gomez's service on 02/13/2021 and brought to the lab head today as an inpatient for left heart catheterization with selective coronary arteriogram. Indication: Abnormal stress test and positive chest pain. Procedure In Detail: Mr. Connors is 40. Only risk factor was family history, had chest pain, positive stress test, brought to the lab head today, prepped and draped in the routine sterile fashion. Give n Versed and fentanyl for sedation. Using the Seldinger technique, 10 cc of xylocaine were used with 6-Telugu sheath in the right common femoral artery. Angiography there was normal. Angio-Seal was u sed to close the case. Kush catheters; left and right were used to cannulate the left main and ri ght main respectively. The patient had a normal LAD, normal circumflex, normal RCA. The RCA was mehran y dominant and large. There were no complications. Blood Loss: 5 mL. Anesthesia: Total conscious sedation was 45 minutes. Postoperative Diagnosis: Chest pain, positive stress test, normal coronaries. Plan: Plan is for medical therapy. We may put him on a low-dose beta-adela. DARCI/KE Voice ID: [id number] Report ID: [id number]
[2021-02-14 12:56] VITALS: BP 113/63; TEMP 97.9
--- NOTE | 2021-02-18 02:43 | P.DS ---
Discharge Date: 02/14/21 Disposition: ROUTINE DISCHARGE Discharge Condition: GOOD Reason for Admission: Chest pain rule out acute coronary syndrome Consultations: Wood Planer - Problems (1) Chest pain, rule out acute myocardial infarction Status: Acute Brief History of Present Illness: Patient is a 40-year-old gentleman came to the hospital with chest discomfort. Pain was mainly in the sternal region. Patient felt a little short of breath. Patient also the lightheaded. He thought it would go away but it was not so we decided come into the emergency room. In the emergency room decision was made to admit to the hospital for further evaluation. Patient will has a family history of cardiac disease. Father had cardiac issues as did his grandfather on his mother side. Patient had a stress test about 5-6 years ago and at that time everything was normal. Further workup pending at this time. Hospital Course: Patient had a cardiac catheterization performed. Heart catheterization doesn't deny reveal any significant abnormality. Patient's stress test with a false positive. At this time, patient is stable for discharge home. Vital Signs/Physical Exam: Temp Pulse Resp BP Pulse Ox 97.9 F 56 18 113/63 95 02/14/21 12:45 02/14/21 12:45 02/14/21 12:45 02/14/21 12:45 02/14/21 12:45 General: Alert, In no apparent distress, Oriented x3 Laboratory Data at Discharge: WBC 8.90 K/uL (4.3-10.9) 02/12/21 20:30 Hgb 15.8 g/dL (13.6-17.9) 02/12/21 20:30 Hct 46.0 % (39.6-49.0) 02/12/21 20:30 Plt Count 244 K/uL (152-406) 02/12/21 20:30 PT 10.3 SECONDS (9.5-12.5) 02/12/21 20:30 INR 0.90 02/12/21 20:30 Sodium 142 mmol/L (136-145) 02/12/21 20:30 Potassium 4.1 mmol/L (3.5-5.1) 02/12/21 20:30 BUN 15 mg/dL (7-18) 02/12/21 20:30 Creatinine 1.12 mg/dL (0.55-1.3) 02/12/21 20:30 Glucose 93 mg/dL (74-106) 02/12/21 20:30 Magnesium 2.4 mg/dL (1.8-2.4) 02/12/21 20:30 Total Bilirubin 0.5 mg/dL (0.2-1.0) 02/12/21 20:30 AST 41 U/L (15-37) H 02/12/21 20:30 ALT 109 U/L (12-78) H 02/12/21 20:30 Alkaline Phosphatase 56 U/L (45-117) 02/12/21 20:30 Troponin I < 0.02 ng/mL (0.0-0.045) 02/14/21 02:50 Triglycerides 250 mg/dL (<150) H 02/13/21 02:40 Cholesterol 184 mg/dL (<200) 02/13/21 02:40 HDL Cholesterol 41 mg/dL (40-60) 02/13/21 02:40 Cholesterol/HDL Ratio 4.49 02/13/21 02:40 Lipase Cancelled 02/12/21 20:57 Home Medications: Aspirin [Aspirin EC 81 MG] 81 mg PO DAILY #30 tablet. 02/14/21 Metoprolol Tartrate [Lopressor*] 25 mg PO BID #60 tab 02/14/21 New Medications: Aspirin [Aspirin EC 81 MG] 81 mg PO DAILY #30 tablet. Metoprolol Tartrate [Lopressor*] 25 mg PO BID #60 tab Physician Discharge Instructions: OK TO DC IV AND DC HOME FOLLOW-UP WITH PRIMARY CARE PROVIDER IN 1-2 WEEKS FOLLOW-UP WITH CARDIOLOGY IN 1-2 WEEKS RETURN TO THE ER IF symptoms worsen CALL or TEXT DR. MELGOZA AT [phone] IF ANY QUESTIONS REGARDING HOSPITAL STAY. PLEASE CALL THE FLOOR AT [phone] IF ANY MEDICATION OR NURSING QUESTIONS. Diet: AHA Activity: Fall precautions Followup: Rasta Lange MD [ACTIVE - CAN ADMIT] - (call to schedule appointment) Rufus Marie MD [Primary Care Provider] - (call to schedule appointment) Time spent managing pt's care (in minutes): 35
== END 2021-02-14 14:14 | disposition home or self-care (01) ==
LOC: ER 17:16 → ERHOLD 02-13 02:26 → 4TH 02-13 20:08
PROVIDERS: ADMIT Hospitalist; ATTEND Internal Medicine Nephrology
PROC: B201YZZ Plain Radiography of Multiple Coronary Arteries using Other Contrast (ICD-10-PCS; principal; 2021-02-13)
DX: R07.89 Other chest pain (principal); R94.39 Abnormal result of other cardiovascular function study; Z20.822 Contact with and (suspected) exposure to COVID-19; Z82.49 Family history of ischemic heart disease and other diseases of the circulatory system
CPT/HCPCS: 93005 ×2; 93017; 93306; 85025; 80048; 36415 ×2; 83735; 85610; 80061; 80076; 84484 ×3; 83690; 83880; 71275; 74175; 71045; 93454 ×2; 78452; 96372; 96374; 99285; U0003; Q9967; C1893; C1760; J1650 ×2; J2250 ×3; J2785; J7040; J1644 ×2; A9500; G0378; J0583; J3010

== ENCOUNTER 2022-03-30 13:19 | Emergency (ER) | payer BC ==
--- OUTSIDE RECORDS SUMMARY | 2022-03-30 13:22 | XMS REPORT | Continuity of Care Document ---
:1980 Author Organization [facility] t Address [address] [place] [address] Care Team Providers Name Role Phone Frank ALSTON Primary Care Physician Rudy Fierro MD Attending Clinician Frank ALSTON Attending Clinician Payers Payer Name Policy Type Policy Number Effective Date Expiration Date S ource Problems Condition Condition Condition Status Onset Resolution Last Treating Co mments Source Name Details Category Date Date Treatment Clinician Date Sleep Sleep Disease Active 2020-11 NPI:183 apnea, apnea, 11-24 [id number] unspecifie unspecifie 00:00: d type d type 00 Essential Essential Disease Active NPI :183 hypertensi hypertensi 02-17 13 [id number] on on 00:00: 00 Allergies, Adverse Reactions, Alerts This patient has no known allergies or adverse reactions. Social History Social Habit Start Date Stop Date Quantity Comments Source History of tobacco Chews Tobacco NPI :[id number] use Exposure to Not sure NPI:[id number] 1 SARS-CoV-2 (event) Tobacco use and 2017-09-15 2017-09-15 Current user NPI:[id number] exposure 00:00:00 00:00:00 Sex [birth year] At [birth year] NPI:[id number] 00:00:00 00:00:00 Smoking Status Start Date Stop Date Source Never smoker Medications Ordered Filled Start Stop Current Ordering Indication Dosage Frequency Signature Comments Components Source Medication Medication Date Date Medication? Clinician (SIG) Name Name losartan 50 Yes [id number] 50mg Take 1 NPI:183 mg tablet 4-[place] [id number] 00:00: mouth 00 daily. diclofenac 0 Yes [id number] 75mg Take 1 NPI:183 75 mg EC 4-04 tablet by [id number] 1 tablet 00:00: mouth 2 00 (two) times daily with meals. losartan 50 2021-0 Yes [id number] 50mg Take 1 NPI:183 mg tablet 4[place] [id number] 00:00: mouth 00 daily. diclofenac 0 Yes [id number] 75mg Take 1 NPI:183 75 mg EC 4-04 tablet by [id number] 1 tablet 00:00: mouth 2 00 (two) times daily with meals. azelastine Yes [id number] 1{spray Use 1 NPI:183 137 mcg 9-16 } [place] in [id number] (0.1 %) 00:00: each nasal spray 00 nostril 2 (two) times daily. Use in each nostril as directed benzonatate Yes [id number] 100mg Take 1 NPI:183 (TESSALON 9-16 capsule by [id number] PERLES) 100 00:00: mouth 3 mg capsule 00 (three) times daily as needed for Cough. azelastine Yes [id number] 1{spray Use 1 NPI:183 137 mcg 9-16 } [place] in [id number] (0.1 %) 00:00: each nasal spray 00 nostril 2 (two) times daily. Use in each nostril as directed benzonatate Yes [id number] 100mg Take 1 NPI:183 (TESSALON 9-16 capsule by [id number] PERLES) 100 00:00: mouth 3 mg capsule 00 (three) times daily as needed for Cough. losartan 50 2020-0 2021- No [id number] 50mg Take 1 NPI:183 mg tablet 3-29 04-04 tablet by [id number] 00:00: 00:00 mouth 00 :00 daily. Immunizations Ordered Immunization Filled Immunization Date Status Commen ts Source Name Name SARS-COV-2 COVID-19 2021-04-09 Completed NPI:1 [id number] MODERNA VACCINE 00:00:00 SARS-COV-2 COVID-19 2021-04-09 Completed NPI:1 [id number] MODERNA VACCINE 00:00:00 SARS-COV-2 COVID-19 2021-03-07 Completed NPI:1 [id number] MODERNA VACCINE 00:00:00 SARS-COV-2 COVID-19 2021-03-07 Completed NPI:1 [id number] MODERNA VACCINE 00:00:00 Vital Signs Vital Name Observation Time Observation Value Comments Source Systolic blood pressure 2022-02-23 20:11:00 129 mm[Hg] Diastolic blood 2022-02-23 20:11:00 79 mm[Hg] NPI:1 [id number] pressure Heart rate 2022-02-23 20:10:00 91 /min NPI:[id number] Body height 2022-02-23 20:10:00 203.2 cm NPI:1831 [id number] Body weight 2022-02-23 20:10:00 121.927 kg NPI:1831 [id number] BMI 2022-02-23 20:10:00 29.53 kg/m2 NPI:[id number] Oxygen saturation in 2022-02-23 20:10:00 98 /min Arterial blood by Pulse oximetry Procedures This patient has no known procedures. Encounters Start End Encounter Admission Attending Care Care Encounter Source Date/Time Date/Time Type Type Clinicians Facility Department ID 2022-03-08 [id number] NPI:183 00:00:00 00:00:00 [facility] [id number] Edjaylen PEDRAZA [id number] PROFESSIO [id number] [facility] 044 OFFICE BUILDING ONE 2022-02-23 2022-02-23 [facility] [id number] NPI:183 14:45:00 15:00:00 Visit [facility] [id number] [facility] [id number] LESLEY?BLEA [phone] [facility] 044 MEDICAL OFFICE BUILDING Results This patient has no known results.
[2022-03-30] MEDS ORDERED: ASPIRIN 81 MG CHEWABLE TABLET ONE (14:07)
[2022-03-30] MEDS ORDERED: NA CHLORIDE 0.9% 1,000 ML ONE (14:07)
[2022-03-30 14:33] LABS: Absolute Lymphocytes (CBC) 1.6 K/uL (0.7-4.9); Hematocrit 43.8 % (39.6-49.0); Lymphocytes % 24.5 % (15.3-44.8); MPV 8.2 fL (7.6-11.3); RBC Red Blood Cell Count 5.04 M/uL (4.33-5.43)
[2022-03-30 14:47] LABS: Protime INR 0.96
[2022-03-30 14:54] LABS: Urine Blood Negative (Negative); Urine Glucose Negative (Negative); Urine Protein Negative (Negative)
[2022-03-30 14:58] LABS: Albumin 4.1 g/dL (3.4-5.0); Bilirubin Direct 0.2 mg/dL (0-0.2); Bilirubin Total 0.7 mg/dL (0.2-1.0); Magnesium 2.1 mg/dL (1.8-2.4); Potassium 3.6 mmol/L (3.5-5.1); Protein, Total 7.4 g/dL (6.4-8.2)
--- NOTE | 2022-03-30 15:13 | RAD REPORT ---
EXAM DESCRIPTION: RAD - Chest Single View - 03/30/2022 2:53 pm CLINICAL HISTORY: PALPITATIONS Chest pain. COMPARISON: Chest Single View dated 02/12/2021; Chest Single View dated 03/03/2020; CHEST PA AND LAT 2 VIEW dated 04/12/2015; CHEST SINGLE VIEW dated 09/24/2008 FINDINGS: Portable technique limits examination quality. The lungs are grossly clear. The heart is normal in size. No displaced fractures. IMPRESSION: No acute intrathoracic process suspected.
--- NOTE | 2022-03-30 15:20 | EDPHYS ---
Physician Documentation [facility] Name: Yoshi Connors Age: 41 yrs Sex: Male : 1980 Arrival Date: 03/30/2022 Time: 13:21 Bed 15 Private MD: ED Physician Jose Vargas HPI: 03/30 15:09 This 41 yrs old Male presents to ER via EMS with complaints of Dizziness. gm 15:09 The patient presents with dizziness, generalized weakness. gm 15:09 The patient presents with a history of heart racing. Context: The symptoms occur WAS gm EATING. Onset: The symptoms/episode began/occurred gradually, today. Duration: The patient or guardian reports a single episode, that is now resolved. Modifying factors: The symptoms are aggravated by nothing. The symptoms are alleviated by nothing. Context: occurred. Modifying factors: The symptoms are alleviated by nothing, the symptoms are aggravated by movement of head. Associated signs and symptoms: The patient has no apparent associated signs or symptoms. Severity of symptoms: At their worst the symptoms were mild in the emergency department the symptoms have resolved and did so just prior to arrival. Historical: - Home Meds: 13:23 None [Active]; raya - PMHx: 13:23 None; raya - PSHx: 13:23 None; raya - Immunization history:: Adult Immunizations up to date. - Social history:: Smoking status: Patient denies any tobacco usage or history of. - Family history:: not pertinent. ROS: 15:09 Constitutional: Negative for fever, chills, and weight loss, Eyes: Negative for injury, gm pain, redness, and discharge, ENT: Negative for injury, pain, and discharge, Neck: Negative for injury, pain, and swelling, Respiratory: Negative for shortness of breath, cough, wheezing, and pleuritic chest pain, Abdomen/GI: Negative for abdominal pain, nausea, vomiting, diarrhea, and constipation, Back: Negative for injury and pain, : Negative for injury, bleeding, discharge, and swelling, MS/Extremity: Negative for injury and deformity, Skin: Negative for injury, rash, and discoloration, Neuro: Negative for headache, weakness, numbness, tingling, and seizure, Psych: Negative for depression, anxiety, suicide ideation, homicidal ideation, and hallucinations, Allergy/Immunology: Negative for hives, rash, and allergies, Endocrine: Negative for neck swelling, polydipsia, polyuria, polyphagia, and marked weight changes, Hematologic/Lymphatic: Negative for swollen nodes, abnormal bleeding, and unusual bruising. 15:09 Cardiovascular: Positive for palpitations. Exam: 15:09 Constitutional: This is a well developed, well nourished patient who is awake, alert, gm and in no acute distress. Head/Face: Normocephalic, atraumatic. Eyes: Pupils equal round and reactive to light, extra-ocular motions intact. Lids and lashes normal. Conjunctiva and sclera are non-icteric and not injected. Cornea within normal limits. Periorbital areas with no swelling, redness, or edema. ENT: Nares patent. No nasal discharge, no septal abnormalities noted. Tympanic membranes are normal and external auditory canals are clear. Oropharynx with no redness, swelling, or masses, exudates, or evidence of obstruction, uvula midline. Mucous membranes moist. Neck: Trachea midline, no thyromegaly or masses palpated, and no cervical lymphadenopathy. Supple, full range of motion without nuchal rigidity, or vertebral point tenderness. No Meningismus. Chest/axilla: Normal chest wall appearance and motion. Nontender with no deformity. No lesions are appreciated. Cardiovascular: Regular rate and rhythm with a normal S1 and S2. No gallops, murmurs, or rubs. Normal PMI, no JVD. No pulse deficits. Respiratory: Lungs have equal breath sounds bilaterally, clear to auscultation and percussion. No rales, rhonchi or wheezes noted. No increased work of breathing, no retractions or nasal flaring. Abdomen/GI: Soft, non-tender, with normal bowel sounds. No distension or tympany. No guarding or rebound. No evidence of tenderness throughout. Back: No spinal tenderness. No costovertebral tenderness. Full range of motion. Male : Normal genitalia with no discharge or lesions. Skin: Warm, dry with normal turgor. Normal color with no rashes, no lesions, and no evidence of cellulitis. MS/ Extremity: Pulses equal, no cyanosis. Neurovascular intact. Full, normal range of motion. Neuro: Awake and alert, GCS 15, oriented to person, place, time, and situation. Cranial nerves II-XII grossly intact. Motor strength 5/5 in all extremities. Sensory grossly intact. Cerebellar exam normal. Normal gait. Psych: Awake, alert, with orientation to person, place and time. Behavior, mood, and affect are within normal limits. 15:09 Musculoskeletal/extremity: DVT Exam: No signs of deep vein thrombosis. no pain, no swelling, no tenderness, negative Homans' sign noted on exam, no appreciated bluish discoloration, no erythema, no increased warmth. 15:17 ECG was reviewed by the Attending Physician. [facility] 15:53 ECG was reviewed by the Attending Physician. gm Vital Signs: 13:21 BP 136 / 63; Pulse 105; Resp 19; Temp 98.2; Pulse Ox 97% on R/A; Weight 115.67 kg; raya Height 6 ft. 8 in. (203.20 cm); 14:29 BP 128 / 74 Supine; Pulse 100; vg1 14:31 BP 138 / 78 Sitting; Pulse 99; vg1 14:33 BP 109 / 81 Standing; Pulse 102; vg1 15:00 BP 110 / 78; Pulse 88; Resp 18; Pulse Ox 98% on R/A; vg1 13:21 Body Mass Index 28.01 (115.67 kg, 203.20 cm) raya MDM: 13:25 Patient medically screened. gm 15:12 Differential diagnosis: arrythmia, dehydration, stress disorder. Differential gm diagnosis: cardiac arrhythmia, generalized weakness, hypovolemia, idiopathic dizziness, near-syncope. Data reviewed: vital signs, nurses notes, lab test result(s), EKG, radiologic studies, plain films. Data interpreted: director regulatory agency: rate is 102 beats/min, rhythm is normal sinus rhythm, regular, Pulse oximetry: on room air is 97 %. Test interpretation: by ED physician or midlevel provider: ECG, plain radiologic studies. Counseling: I had a detailed discussion with the patient and/or guardian regarding: the historical points, exam findings, and any diagnostic results supporting the discharge/admit diagnosis, lab results, radiology results, the need for outpatient follow up, for definitive care, a powder monkey, a family practitioner. 03/30 13:26 Order name: Basic Metabolic Panel; Complete Time: 15:01 gm 03/30 13:26 Order name: CBC with Diff; Complete Time: 14:53 [facility] 03/30 13:26 Order name: LFT's; Complete Time: 15:01 gm 03/30 13:26 Order name: Magnesium; Complete Time: 15:01 gm 03/30 13:26 Order name: NT PRO-BNP; Complete Time: 15:01 gm 03/30 13:26 Order name: PT-INR; Complete Time: 14:53 gm 03/30 13:26 Order name: Troponin HS; Complete Time: 15:01 gm 03/30 13:26 Order name: XRAY Chest (1 view); Complete Time: 15:17 gm 03/30 13:26 Order name: D-Dimer; Complete Time: 14:53 [facility] 03/30 13:26 Order name: Lipase; Complete Time: 15: [facility] 03/30 13:48 Order name: TSH; Complete Time: 15:17 [facility] 03/30 14:54 Order name: Urine Dipstick-Ancillary; Complete Time: 15:01 EDID 03/30 15:17 Order name: Troponin High Sensitivity: 315 PM NOW 03/30 13:26 Order name: EKG; Complete Time: 13:28 [facility] 03/30 13:26 Order name: Cardiac monitoring; Complete Time: 14:23 [facility] 03/30 13:26 Order name: EKG - Nurse/Tech; Complete Time: 14:23 [facility] 03/30 13:26 Order name: IV Saline Lock; Complete Time: 14:23 [facility] 03/30 13:26 Order name: Labs collected and sent; Complete Time: 14:23 gm 03/30 13:26 Order name: O2 Per Protocol; Complete Time: 14:23 gm 03/30 13:26 Order name: O2 Sat Monitoring; Complete Time: 14:23 [facility] 03/30 13:26 Order name: Urine Dipstick-Ancillary (obtain specimen); Complete Time: 14:49 [facility] 03/30 15:17 Order name: EKG; Complete Time: 15:17 [facility] 03/30 15:17 Order name: EKG - Nurse/Tech; Complete Time: 15:44 gm EC:17 Rate is 91 beats/min. Rhythm is regular. QRS [place] is Normal. WA interval is normal. QRS gm interval is normal. QT interval is normal. No Q waves. T waves are Normal. No ST changes noted. Clinical impression: NSR w/ Non-specific ST/T Changes and No evidence of ischemia. Interpreted by me. Reviewed by me. 15:53 Rate is 76 beats/min. Rhythm is regular. QRS [place]da is Normal. WA interval is normal. QRS gm interval is normal. QT interval is normal. No Q waves. T waves are Normal. No ST changes noted. Clinical impression: Normal ECG and No evidence of ischemia. Interpreted by me. Reviewed by me. Administered Medications: 14:23 Drug: Aspirin 81 mg Route: PO; vg1 15:27 Follow up: Response: No adverse reaction vg1 14:35 Drug: NS 0.9% 1000 ml Route: IV; Rate: 1 bolus; Site: left forearm; vg1 16:23 Follow up: IV Status: Completed infusion; IV Intake: 1000ml vg1 Disposition Summary: 03/30/22 15:19 Discharge Ordered Location: Home gm Problem: new gm Symptoms: have improved gm Condition: Stable gm Diagnosis - Palpitations gm - Tachycardia, unspecified gm Followup: gm - With: Private Physician - When: 1 - 2 days - Reason: Recheck today's complaints, Continuance of care, Re-evaluation by your physician Followup: gm - With: Rasta Lange MD - When: 2 - 3 days - Reason: Recheck today's complaints, Continuance of care, Re-evaluation by your physician Discharge Instructions: - Discharge Summary Sheet gm - Palpitations gm - Aspirin and Your Heart gm - Palpitations, [id number] gm - Sinus Tachycardia gm Forms: - Medication Reconciliation Form gm - Thank You Letter gm - Antibiotic Education gm - Prescription Opioid Use gm Signatures: Dispatcher [employer] Jose Loja MD MD cha Garcia, Victoria RN RN vg1 Sona Quinn RN RN
--- NOTE | 2022-03-30 15:20 | ER ---
Nurse's Notes [facility] Name: Yoshi Connors Age: 41 yrs Sex: Male : 1980 Arrival Date: 03/30/2022 Time: 13:21 Bed 15 Private MD: Diagnosis: Palpitations;Tachycardia, unspecified Presentation: 03/30 13:21 Chief complaint: Patient states: pt presented to ED reporting dizziness and mouth raya dryness. Coronavirus screen: Vaccine status: Patient reports receiving the 2nd dose of the covid vaccine. Ebola Screen: Patient denies travel to an Ebola-affected area in the 21 days before illness onset. Initial Sepsis Screen: Does the patient meet any 2 criteria? HR > 90 bpm. Does the patient have a suspected source of infection? No. Patient's initial sepsis screen is negative. Risk Assessment: Do you want to hurt yourself or someone else? Patient reports no desire to harm self or others. Onset of symptoms was March 30, 2022. 13:21 Method Of Arrival: EMS: [facility] 13:21 Acuity: TRUDY 3 raya Triage Assessment: 13:23 General: Appears in no apparent distress. Behavior is calm, cooperative. Pain: Denies raya pain. Historical: - Home Meds: 13:23 None [Active]; raya - PMHx: 13:23 None; raya - PSHx: 13:23 None; raya - Immunization history:: Adult Immunizations up to date. - Social history:: Smoking status: Patient denies any tobacco usage or history of. - Family history:: not pertinent. Screenin:24 Abuse screen: Denies threats or abuse. Denies injuries from another. Nutritional raya screening: No deficits noted. Tuberculosis screening: No symptoms or risk factors identified. Fall Risk None identified. Assessment: 13:24 General: Appears in no apparent distress. Behavior is calm, cooperative. Pain: Denies raya pain. Neuro: Level of Consciousness is awake, alert, obeys commands, Oriented to person, place, time, situation, Reports dizziness. Cardiovascular:. 14:35 Reassessment: Patient appears in no apparent distress at this time. Patient and/or vg1 family updated on plan of care and expected duration. Pain level reassessed. Patient is alert, oriented x 3, equal unlabored respirations, skin warm/dry/pink. Patient denies pain at this time. 15:27 Reassessment: Patient appears in no apparent distress at this time. No changes from vg1 previously documented assessment. Patient and/or family updated on plan of care and expected duration. Pain level reassessed. Patient is alert, oriented x 3, equal unlabored respirations, skin warm/dry/pink. 15:28 Reassessment: pt up for d/c; currently waiting for repeat of troponin level. vg1 16:21 Reassessment: Provider aware of repeat troponin level. vg1 Vital Signs: 13:21 BP 136 / 63; Pulse 105; Resp 19; Temp 98.2; Pulse Ox 97% on R/A; Weight 115.67 kg; raya Height 6 ft. 8 in. (203.20 cm); 14:29 BP 128 / 74 Supine; Pulse 100; vg1 14:31 BP 138 / 78 Sitting; Pulse 99; vg1 14:33 BP 109 / 81 Standing; Pulse 102; vg1 15:00 BP 110 / 78; Pulse 88; Resp 18; Pulse Ox 98% on R/A; vg1 13:21 Body Mass Index 28.01 (115.67 kg, 203.20 cm) raya ED Course: 13:21 Patient arrived in ED. raya 13:23 Triage completed. raya 13:23 Arm band placed on. raya 13:24 Patient has correct armband on for positive identification. Bed in low position. raya 13:24 No provider procedures requiring assistance completed. Maintain EMS IV. Gauge \T\ site: raya 20g LFA. 13:25 Jose Vargas MD is Attending Physician. [facility] 13:41 Katja Reyna RN is Primary Nurse. vg1 14:24 Initial lab(s) drawn, by me, sent to lab. Inserted saline lock: 22 gauge in right vg1 wrist, using aseptic technique. Blood collected. 14:55 XRAY Chest (1 view) In Process Unspecified. EDMS 15:18 Rasta Lange MD is Referral Physician. gm 15:44 Repeat lab(s) drawn. by me, sent to lab. vg1 17:08 IV discontinued, intact, bleeding controlled, No redness/swelling at site. Pressure vg1 dressing applied. Administered Medications: 14:23 Drug: Aspirin 81 mg Route: PO; vg1 15:27 Follow up: Response: No adverse reaction vg1 14:35 Drug: NS 0.9% 1000 ml Route: IV; Rate: 1 bolus; Site: left forearm; vg1 16:23 Follow up: IV Status: Completed infusion; IV Intake: 1000ml vg1 Intake: 16:23 IV: 1000ml; Total: 1000ml. vg1 Outcome: 15:19 Discharge ordered by . gm 17:08 Discharged to home ambulatory, with family. vg1 17:08 Condition: good 17:08 Discharge instructions given to patient, family, Instructed on discharge instructions, follow up and referral plans. Demonstrated understanding of instructions, follow-up care. 17:09 Patient left the ED. vg1 Signatures: Dispatcher [employer] Jose Loja MD MD cha Garcia, Victoria, RN RN vg1 Yanni-StagerSona RN RN raya Corrections: (The following items were deleted from the chart) 15:27 14:35 Reassessment: Patient appears in no apparent distress at this time. Patient vg1 and/or family updated on plan of care and expected duration. Pain level reassessed. Patient is alert, oriented x 3, equal unlabored respirations, skin warm/dry/pink. Patient is alert/active/playful, equal unlabored respirations, skin warm/dry/pink. Patient denies pain at this time. vg1 16:22 15:27 BP 110 / 78; vg1 vg1
[2022-03-30 18:21] VITALS: TEMP 98.2
[2022-03-30 18:28] VITALS: BP 110/78; O2SAT 98
--- NOTE | 2022-03-31 10:20 | EKG ---
Test Date: 2022-03-30 Test Time: 15:36:56 Sand Worker: LIONEL MEASUREMENT RESULTS: Intervals: Rate: 76 GA: 160 QRSD: 98 QT: 360 QTc: 405 [place]: P: 57 GA: 160 QRS: 36 T: 55 INTERPRETIVE STATEMENTS: Normal sinus rhythm with sinus arrhythmia Normal ECG Compared to ECG 02/12/2021 20:59:18 No significant changes Electronically Signed On 03-31-22 10:17:37 CDT by Rasta Lange
--- NOTE | 2022-03-31 10:20 | EKG ---
Test Date: 2022-03-30 Test Time: 14:21:51 Desk Attendant: LIONEL MEASUREMENT RESULTS: Intervals: Rate: 91 SC: 166 QRSD: 100 QT: 350 QTc: 430 [place]: P: 54 SC: 166 QRS: 40 T: 65 INTERPRETIVE STATEMENTS: Normal sinus rhythm with sinus arrhythmia Normal ECG Compared to ECG 02/12/2021 20:59:18 No significant changes Electronically Signed On 03-31-22 10:17:39 CDT by Rasta Lange
== END 2022-03-30 17:09 | disposition home or self-care (01) ==
LOC: ER 13:19
DX: R00.0 Tachycardia, unspecified (principal); R53.1 Weakness; R42 Dizziness and giddiness
CPT/HCPCS: 93005 ×2; 85025; 80048; 36415; 83735; 85610; 85379; 80076; 84443; 81003; 84484 ×2; 83690; 83880; 71045; J7030; 96360; 96361; 99284